=== PATIENT | male | born 1965 | race Caucasian/White ===

== ENCOUNTER 2017-08-27 19:13 | Inpatient (IN) | payer MEDICARE, OTHER ==
[~2017-08-27] VITALS: Ht 182.9 cm; Wt 122.0 kg
[~2017-08-27 19:13] MED LIST: ABILIFY5 M1 PO; APAP/HYDROCODON1 T13 PO; ATIVAN1 MG PO; BENADRYL ALLERG25 M1 PO; ECO81 PO; ELA25 PO; HALDOL PO; HCTZ PO; LAC PO; LEVAQUIN750 MG PO; LISINOPRIL10 MG PO; LOPRESSOR100 MG PO; METHYLDO PO; MILK OF MAGNESIA PO; MP PO; NICOTINE T14 MG/24 H TOP; NOR5 PO; PROZAC40 MG PO; QUETIAPINE FUM200 MG PO; RESTORIL30 MG PO; SEROQUEL XR300 MG PO; SEROQUEL XR400 MG PO; SEROQUEL100 MG PO; SEROQUEL200 MG PO; SEROQUEL400 M1 PO; TYLENOL PO; WEL100 PO; ZES20 PO; ZOLOFT50 MG PO
[2017-08-27 21:12] LABS: BASOPHIL % 0.5 % (0-2); PLATELET COUNT 207 x10^3mcL (130-400); RED CELL DISTRIBUTION WIDTH 13.9 % (11.5-14.5)
[2017-08-27 21:21] LABS: CARBON DIOXIDE 25.1 mmol/L (21-32); CHLORIDE SERUM 112 mmol/L (98-107); GFR1 > 60 mL/min; GLUCOSE SERUM 82 mg/dL (74-106); POTASSIUM SERUM 3.9 mmol/L (3.5-5.1); SODIUM SERUM 142 mmol/L (136-145)
[2017-08-27 21:26] LABS: ALKALINE PHOSPHATASE 95 U/L (46-116); ALT/SGPT 30 U/L (16-63); AST/SGOT 25 U/L (15-37); BILIRUBIN TOTAL 0.3 mg/dL (0.20-1.00); TOTAL PROTEIN, SERUM 6.2 g/dL (6.4-8.2)
[2017-08-27 21:29] LABS: ALBUMIN 3.2 g/dL (3.4-5.0)
[2017-08-27 21:33] LABS: FREE T4 1.07 ng/dL (0.76-1.46)
[2017-08-27 22:07] LABS: AMPHETAMINE QUAL UR POSITIVE (NEG <=1000)
[2017-08-28 07:18] LABS: microscopic required? YES; urine erythrocyte NEGATIVE (NEGATIVE)
[2017-08-28 10:18] VITALS: BP 135/77
[2017-08-28 17:51] VITALS: BP 127/79
[2017-08-28 20:07] VITALS: BP 136/61
[2017-08-29 05:12] VITALS: BP 146/94
[2017-08-29 06:21] LABS: BASOPHIL % 0.3 % (0-2); PLATELET COUNT 200 x10^3mcL (130-400); RED CELL DISTRIBUTION WIDTH 14.2 % (11.5-14.5)
[2017-08-29 06:27] LABS: CALCIUM 8.2 mg/dL (8.5-10.1); CARBON DIOXIDE 30.3 mmol/L (21-32); CHLORIDE SERUM 109 mmol/L (98-107); CREATININE SERUM 0.8 mg/dL (0.7-1.3); GFR1 > 60 mL/min; GLUCOSE SERUM 100 mg/dL (74-106); MAGNESIUM 1.9 mg/dL (1.8-2.4); PHOSPHOROUS 3.4 mg/dL (2.5-4.9); POTASSIUM SERUM 3.8 mmol/L (3.5-5.1); SODIUM SERUM 140 mmol/L (136-145); TRIGLYCERIDES 96 mg/dL (<150)
[2017-08-29 06:28] LABS: CHOLESTEROL 105 mg/dL (<200); CHOLESTEROL/HDL RATIO 3.4; HDL CHOLESTEROL 31 mg/dL (40-60)
[2017-08-29 09:45] VITALS: BP 143/97
[2017-08-29 13:09] VITALS: BP 160/94
[2017-08-29 14:52] VITALS: BP 109/58
[2017-08-29 20:13] VITALS: BP 130/75
[2017-08-30 05:25] VITALS: BP 122/88
[2017-08-30 07:52] VITALS: BP 128/75
[2017-08-30 11:44] VITALS: Ht 182.9 cm; Wt 122.0 kg
[2017-08-30 16:32] VITALS: BP 144/96
[2017-08-30 20:41] VITALS: BP 125/85
[2017-08-31 05:41] VITALS: BP 134/68
[2017-08-31 09:21] VITALS: BP 129/81
[2017-08-31 12:45] VITALS: BP 138/99
[2017-08-31 17:29] VITALS: BP 137/80
[2017-08-31 21:43] VITALS: BP 142/84
[2017-09-01 06:09] LABS: BASOPHIL % 0.5 % (0-2); PLATELET COUNT 224 x10^3mcL (130-400); RED CELL DISTRIBUTION WIDTH 13.7 % (11.5-14.5)
[2017-09-01 06:10] VITALS: BP 113/74
[2017-09-01 06:40] LABS: CALCIUM 8.5 mg/dL (8.5-10.1); CARBON DIOXIDE 29.5 mmol/L (21-32); CHLORIDE SERUM 104 mmol/L (98-107); GFR1 > 60 mL/min; GLUCOSE SERUM 119 mg/dL (74-106); MAGNESIUM 1.9 mg/dL (1.8-2.4); PHOSPHOROUS 4.4 mg/dL (2.5-4.9); POTASSIUM SERUM 3.6 mmol/L (3.5-5.1); SODIUM SERUM 140 mmol/L (136-145)
[2017-09-01 08:56] VITALS: BP 136/75
[2017-09-01 12:46] VITALS: BP 119/84
[2017-09-01] MEDS ORDERED: NOR10 PO (15:47)
[2017-09-01] MEDS ORDERED: ZES10 PO (15:47)
[2017-09-01] MEDS ORDERED: ELA25 PO (15:50)
[2017-09-01] MEDS ORDERED: ABILIFY10 M2 PO (15:51)
[2017-09-01] MEDS ORDERED: LAC PO (15:52)
[2017-09-01] MEDS ORDERED: SERO100 PO (15:52)
[2017-09-01] MEDS ORDERED: BACO TOP (15:53)
[2017-09-01] MEDS ORDERED: HIBICLENS118 ML TOP (15:54)
[2017-09-01] MEDS ORDERED: LEVAQUIN750 MG PO (15:55)
[2017-09-01] MEDS ORDERED: METOPROLOL TART50 MG PO (16:05)
[2017-09-01 16:15] VITALS: BP 119/84
== END 2017-09-01 16:16 | disposition home or self-care (01) | DRG 885 ==
LOC: ED 19:13 → DU 08-28 02:29
PROVIDERS: Emergency Medicine; Family Medicine; ADMIT Family Medicine
DX: F25.0 Schizoaffective disorder, bipolar type (principal); N17.0 Acute kidney failure with tubular necrosis; G92 Toxic encephalopathy; R45.851 Suicidal ideations; E44.0 Moderate protein-calorie malnutrition; N39.0 Urinary tract infection, site not specified; I10 Essential (primary) hypertension; E87.8 Other disorders of electrolyte and fluid balance, not elsewhere classified; I25.10 Atherosclerotic heart disease of native coronary artery without angina pectoris; E83.52 Hypercalcemia; Z59.0 Homelessness; F15.10 Other stimulant abuse, uncomplicated; F17.210 Nicotine dependence, cigarettes, uncomplicated; Z68.36 Body mass index [BMI] 36.0-36.9, adult; Z91.19 Patient's noncompliance with other medical treatment and regimen; Z22.322 Carrier or suspected carrier of Methicillin resistant Staphylococcus aureus
CPT/HCPCS: 84439; G0480; J0696; J7030; Q0092